=== PATIENT | male | born 1975 | race African-American/Black ===

== ENCOUNTER 2020-11-19 19:09 | Emergency (ER) | payer SELFPAY ==
[~2020-11-19] VITALS: Ht 175.3 cm; Wt 70.3 kg
[2020-11-19 19:50] LABS: BASOPHILS % 0.5 % (0.0-1.0); EOSINOPHILS # (AUTO) 0.2 (0.0-0.4); EOSINOPHILS % 2.8 % (0.0-6.0); HEMATOCRIT 36.3 % (38.2-49.6); HEMOGLOBIN 11.9 g/dL (14.0-18.0); LYMPHOCYTES # (AUTO) 2.2 (1.0-3.2); LYMPHOCYTES % 38.4 % (18.0-39.1); MEAN CORPUSCULAR HEMOGLOBIN 23.7 pg (28-32); MEAN CORPUSCULAR HGB CONC 32.8 g/dL (31-35); MEAN CORPUSCULAR VOLUME 72.3 fL (81-99); MONOCYTES # (AUTO) 0.5 (0.2-0.8); MONOCYTES % 9.3 % (4.4-11.3); NEUTROPHILS # (AUTO) 2.8 (2.1-6.9); NEUTROPHILS % 48.8 % (38.7-80.0); PLATELET COUNT 159 x10e3/uL (140-360); RED BLOOD COUNT 5.02 x10e6/uL (4.3-5.7); RED CELL DISTRIBUTION WIDTH 16.6 % (11.7-14.4)
[2020-11-19 20:04] LABS: ALANINE AMINOTRANSFERASE 14 IU/L (0-55); ALBUMIN 3.9 g/dL (3.5-5.0); ALBUMIN/GLOBULIN RATIO 1.5 (0.8-2.0); ALKALINE PHOSPHATASE 70 IU/L (40-150); ANION GAP 13.9 mmol/L (8-16); BLOOD UREA NITROGEN 10 mg/dL (7-26); BUN/CREATININE RATIO 10 (6-25); CALCIUM 8.7 mg/dL (8.4-10.2); CARBON DIOXIDE 29 mmol/L (22-29); CHLORIDE 100 mmol/L (98-107); CREATINE KINASE 311 IU/L (30-200); CREATININE, SERUM 1.02 mg/dL (0.72-1.25); EST GLOMERULAR FILTRATION RATE > 60 ML/MIN (60-); GLUCOSE 94 mg/dL (74-118); POTASSIUM 3.9 mmol/L (3.5-5.1); SODIUM 139 mmol/L (136-145)
[2020-11-19 20:08] LABS: AMPHETAMINES SCREEN,URINE NEGATIVE (NEGATIVE); BENZODIAZEPINES SCREEN,URINE NEGATIVE (NEGATIVE); PHENCYCLIDINE SCREEN,URINE NEGATIVE (NEGATIVE)
[2020-11-19 21:04] VITALS: BP 104/88
[2020-11-19] MEDS ORDERED: LEVETIRACETAM 500 MG TAB ONE (21:32)
== END 2020-11-19 23:30 | disposition home or self-care (01) ==
LOC: ER 20:19
DX: G40.909 Epilepsy, unspecified, not intractable, without status epilepticus (principal)
CPT/HCPCS: 36415; 80053; 80307; 82550; 82553; 84484; 85025; 93005; 99284

== ENCOUNTER 2025-05-09 11:34 | Inpatient (IN) | payer SELFPAY ==
[2025-05-09] VITALS (29 sets, daily range): BP systolic 110–129; BP diastolic 70–85; PULSE 76–91; RESP 8–18; TEMP 99–101.4; O2SAT 95–100
[~2025-05-09] VITALS: Ht 177.8 cm; Wt 68.5 kg
[2025-05-09 12:25] LABS: BASOPHILS % 0.2 % (0.0-1.0); EOSINOPHILS % 0.2 % (0.0-6.0); LYMPHOCYTES % 8.6 % (18.0-39.1); MONOCYTES % 7.5 % (4.4-11.3); NEUTROPHILS % 83.1 % (38.7-80.0); RED CELL DISTRIBUTION WIDTH 15.4 % (11.7-14.4)
[2025-05-09] MEDS ORDERED: LORAZEPAM INJ 2 MG/ML VIAL ONE (12:39)
[2025-05-09] MEDS: LORAZEPAM INJ 2 MG/ML VIAL IV ONE ×2 (12:42→13:22)
[2025-05-09 12:51] LABS: EST GLOMERULAR FILTRATION RATE 54.0 ML/MIN (>=60)
[2025-05-09] MEDS: LEVETIRACETAM 1500 MG/100 ML 100 ML IV ONE (12:51)
[2025-05-09 14:16] LABS: CORONAVIRUS COVID-19 AG NEGATIVE (NEGATIVE)
[2025-05-09] MEDS ORDERED: ONDANSETRON HCL INJ 2MG/ML 2ML 2 MG/ML VIAL IV PRN (15:00)
[2025-05-09] MEDS: ACYCLOVIR SODIUM IV SCH (17:19)
[2025-05-09] MEDS: SODIUM CHLORIDE 0.9% 1000ML 1,000 ML IV SCH (17:19)
[2025-05-09] MEDS: SODIUM CHLORIDE 0.9% IV SCH (17:19)
[2025-05-09] MEDS: ACETAMINOPHEN 1000 MG/100 ML IV PRN (18:21)
[2025-05-09 18:58] LABS: AMPHETAMINES SCREEN,URINE POSITIVE (NEGATIVE); CANNABINOIDS SCREEN,URINE NEGATIVE (NEGATIVE); COCAINE SCREEN,URINE NEGATIVE (NEGATIVE); METHADONE SCREEN, URINE NEGATIVE (NEGATIVE); OPIATES SCREEN,URINE NEGATIVE (NEGATIVE)
[2025-05-09 19:22] LABS: LEUKOCYTE ESTERASE ,URINE NEGATIVE (NEGATIVE); PROTEIN,URINE DIPSTICK NEGATIVE (NEGATIVE); URINE UROBILINOGEN 0.2 mg/dL (0.2 - 1)
[2025-05-09 19:26] LABS: WBC,URINE (MAN) 0-5 /HPF (0-5)
[2025-05-09 19:27] LABS: EPITHELIAL CELLS,URINE FEW /LPF
[2025-05-09] MEDS: VANCOMYCIN HCL 1.25 GM in SODIUM CHLORIDE 0.9% 250ML 250 ML IV ONE (19:44)
[2025-05-09] MEDS: CEFTRIAXONE 2 GM in SODIUM CHLORIDE 0.9% 100 ML IV SCH (20:09)
[2025-05-09] MEDS: SODIUM CHLORIDE 0.9% INJ ONE (20:35)
[2025-05-09] MEDS: VALPROATE SOD INJ ONE (20:35)
[2025-05-09] MEDS: LEVETIRACETAM 1000MG/100ML IV 100 ML IV SCH (23:53)
[2025-05-10] VITALS (27 sets, daily range): BP systolic 103–138; BP diastolic 71–92; PULSE 59–96; RESP 9–17; TEMP 98.7–99; O2SAT 95–100
[2025-05-10] MEDS: VALPROATE SOD INJ 500 MG in SODIUM CHLORIDE 0.9% 100 ML IV SCH (02:01)
[2025-05-10 07:17] LABS: BASOPHILS % 0.4 % (0.0-1.0); EOSINOPHILS % 0.5 % (0.0-6.0); LYMPHOCYTES % 26.5 % (18.0-39.1); MONOCYTES % 8.7 % (4.4-11.3); NEUTROPHILS % 63.6 % (38.7-80.0); RED CELL DISTRIBUTION WIDTH 15.3 % (11.7-14.4)
[2025-05-10 07:36] LABS: EST GLOMERULAR FILTRATION RATE 98.0 ML/MIN (>=60)
[2025-05-10] MEDS ORDERED: THIAMINE HCL INJ 100 MG/ML 2ML VIAL IV SCH (09:00)
[2025-05-11] VITALS (24 sets, daily range): BP systolic 107–162; BP diastolic 75–114; PULSE 56–83; RESP 9–19; TEMP 98–98.8; O2SAT 99–100
[2025-05-11] MEDS: LORAZEPAM INJ 2 MG/ML VIAL IV PRN (19:46)
[2025-05-11] MEDS: METHADONE HCL 5 MG TAB PO SCH (22:44)
[2025-05-12] VITALS (12 sets, daily range): BP systolic 112–163; BP diastolic 62–130; PULSE 65–81; RESP 13–20; TEMP 98.4–98.5; O2SAT 96–100
[2025-05-12 07:04] LABS: BASOPHILS % 0.4 % (0.0-1.0); EOSINOPHILS % 3.1 % (0.0-6.0); LYMPHOCYTES % 32.8 % (18.0-39.1); MONOCYTES % 9.8 % (4.4-11.3); NEUTROPHILS % 53.7 % (38.7-80.0); RED CELL DISTRIBUTION WIDTH 15.0 % (11.7-14.4)
[2025-05-12 07:52] LABS: EST GLOMERULAR FILTRATION RATE 106.0 ML/MIN (>=60)
[2025-05-12 08:55] LABS: INR 0.94
[2025-05-12] MEDS: METHADONE HCL 5 MG TAB PO SCH (11:02)
[2025-05-13 06:05] LABS: HSV 1 BY PCR Negative (Negative); HSV 2 BY PCR Negative (Negative)
== END 2025-05-12 11:15 | disposition home or self-care (01) | DRG 100 ==
LOC: ER 11:50 → ERHOLD 14:55 → ICU 16:19
PROVIDERS: ADMIT Internal Medicine; ATTEND Internal Medicine
PROC: 00JV3ZZ Inspection of Spinal Cord, Percutaneous Approach (ICD-10-PCS; principal; 2025-05-09)
DX: G40.89 Other seizures (principal); J69.0 Pneumonitis due to inhalation of food and vomit; R64 Cachexia; N17.9 Acute kidney failure, unspecified; F11.20 Opioid dependence, uncomplicated; D50.9 Iron deficiency anemia, unspecified; F15.10 Other stimulant abuse, uncomplicated; F13.10 Sedative, hypnotic or anxiolytic abuse, uncomplicated; Z68.21 Body mass index [BMI] 21.0-21.9, adult; Z53.09 Procedure and treatment not carried out because of other contraindication; Z11.52 Encounter for screening for COVID-19; Z91.148 Patient's other noncompliance with medication regimen for other reason
CPT/HCPCS: 36415; 62270; 70450; 71045; 80048; 80053; 80307; 81001; 82948; 83735; 85025; 85610; 87040; 87529; 87798; 95812; 99284; J0696; J2060; J2405; J2470; J3411; J7030; J7050